=== PATIENT | female | born 1990 | race Caucasian/White ===

== ENCOUNTER 2017-11-23 18:12 | Outpatient (CLI) | payer OTHER | END 2017-11-23 20:15 | disposition home or self-care (01) | LOC: M LDO 18:12 | DX: O26.892 Other specified pregnancy related conditions, second trimester (principal); Z3A.27 27 weeks gestation of pregnancy; E86.0 Dehydration; O99.282 Endocrine, nutritional and metabolic diseases complicating pregnancy, second trimester | CPT/HCPCS: G0463 ==

== ENCOUNTER 2018-02-11 20:54 | Inpatient (IN) | payer OTHER ==
[2018-02-11] MEDS: LR 1,000 ML IV (22:09)
[2018-02-11 22:32] LABS: HEMATOCRIT 33.9 % (36.0-47.0); HEMOGLOBIN 11.1 g/dl (12.0-15.5); MEAN CORPUSCULAR HEMOGLOBIN 28.1 pg (27.0-33.0); MEAN CORPUSCULAR HGB CONC 32.7 g/dl (32.0-36.5); MEAN CORPUSCULAR VOLUME 85.8 fl (80.0-96.0); PLATELET COUNT, AUTOMATED 208 10^3/uL (150-450); RED BLOOD COUNT 3.95 10^6/uL (4.00-5.40); RED CELL DISTRIBUTION WIDTH 14.4 % (11.5-14.5); WHITE BLOOD COUNT 12.8 10^3/uL (4.0-10.0)
[2018-02-11] MEDS: LACTATED RINGER'S 1000 ML IV (22:37)
[2018-02-11] MEDS ORDERED: FENTANYL 2MCG/ML ROPIVACAINE 0.2% IN 0.9% NACL 200ML IVBAG As Ordered (23:51)
[2018-02-12 00:14] LABS: CONTROL LINE INT CTR LINE PRESENT; HIV SCRN NEGATIVE (NEGATIVE); HIV SCRN1 NEGATIVE (NEGATIVE)
[2018-02-12] MEDS ORDERED: diphenhydrAMINE INJ 50MG/ML VIAL (J1200) IV (00:23)
[2018-02-12] MEDS ORDERED: ONDANSETRON 4MG/2ML VIAL (J2405) IV ×2 (00:23→08:30)
[2018-02-12] MEDS ORDERED: NALOXONE INJ 0.4 MG/1 ML VIAL (J2310) IV (00:23)
[2018-02-12] MEDS ORDERED: LACTATED RINGER'S 1000 ML IV (00:23)
[2018-02-12] MEDS ORDERED: FENTANYL/ROPIVACAINE/NACL BAG 200 ML EPIDURAL (00:23)
[2018-02-12] MEDS ORDERED: ePHEDrine SULFATE 25 MG/5 ML(5MG/ML) SYRINGE IV (00:23)
[2018-02-12] MEDS ORDERED: EPIDURAL COMMENT XX (00:23)
[2018-02-12] MEDS ORDERED: EPIDURAL/PCA KEYS XX (00:23)
[2018-02-12] MEDS ORDERED: REFRIGERATOR IV KEYS XX (00:23)
[2018-02-12] MEDS ORDERED: OXYTOCIN DRIP 30 UNITS in APPROPRIATE DILUENT 1 EA IV (03:45)
[2018-02-12] MEDS ORDERED: OXYTOCIN 30 UNITS IN 0.9% NaCl 500ML IV BAG (J2590) As Ordered (07:28)
[2018-02-12] MEDS ORDERED: DOCUSATE SODIUM 100 MG CAP PO (08:30)
[2018-02-12] MEDS ORDERED: METHYLERGONOVINE MALEATE 0.2 MG TAB PO (08:30)
[2018-02-12] MEDS ORDERED: ANUSOL HC CREAM 30GM TOP (08:30)
[2018-02-12] MEDS: PRENATAL VITAMINS CHEWABLE TABLET PO (09:00)
[2018-02-12] MEDS: OXYTOCIN DRIP 30 UNITS in APPROPRIATE DILUENT 1 EA IV ×2 (09:04→11:13)
[2018-02-12] MEDS: ACETAMINOPHEN TAB 650MG DOSE (2X325MG) PO (09:04)
[2018-02-12] MEDS: OXYTOCIN INJ 10 UNITS/ML VIAL (J2590) IV (09:04)
[2018-02-12] MEDS: DIBUCAINE 1% OINTMENT 30GM TOP (16:31)
[2018-02-12] MEDS: IBUPROFEN 600 MG TAB PO (16:33)
[2018-02-13] MEDS: PRENATAL VITAMINS CHEWABLE TABLET PO (07:42)
[2018-02-13] MEDS: IBUPROFEN 600 MG TAB PO (07:42)
== END 2018-02-13 13:25 | disposition home or self-care (01) | DRG 775 ==
LOC: M LDO 20:54 → M OBS 02-12 10:59 → M LDI 22:04
PROC: 10E0XZZ Delivery of Products of Conception, External Approach (ICD-10-PCS; principal; 2018-02-12)
DX: O99.214 Obesity complicating childbirth (principal); Z37.0 Single live birth; Z3A.39 39 weeks gestation of pregnancy; E66.9 Obesity, unspecified; O26.03 Excessive weight gain in pregnancy, third trimester; Z68.32 Body mass index [BMI] 32.0-32.9, adult; O76 Abnormality in fetal heart rate and rhythm complicating labor and delivery; O69.1XX0 Labor and delivery complicated by cord around neck, with compression, not applicable or unspecified